=== PATIENT | male | born 1950 | race Caucasian/White ===

== ENCOUNTER 2017-02-25 10:51 | Outpatient (CLI) | payer MEDICARE, BC | END 2017-02-25 10:52 | disposition home or self-care (01) | LOC: SC 10:51 | PROVIDERS: ATTEND Internal Medicine Pulmonary Disease | DX: G47.33 Obstructive sleep apnea (adult) (pediatric) (principal) | CPT/HCPCS: 99203; G0463; 99212 ==

== ENCOUNTER 2017-05-29 09:06 | Outpatient (CLI) | payer MEDICARE, BC ==
[2017-05-29 17:24] LABS: BASOPHILS % (AUTO) 0.6 %; EOSINOPHILS # (AUTO) 0.2 10^3/uL (0.0-0.7); EOSINOPHILS % (AUTO) 4.6 %; HGB - HEMOGLOBIN 13.8 g/dL (14.0-18.0); LYMPHOCYTES # (AUTO) 1.2 10^3/uL (1.5-3.5); LYMPHOCYTES % (AUTO) 28.1 %; MEAN CORPUSCULAR HEMOGLOBIN 31.3 pg (27.0-31.0); MEAN CORPUSCULAR HGB CONC 33.1 g/dL (32.0-36.0); MEAN CORPUSCULAR VOLUME 94.6 fL (80.0-94.0); MEAN PLATELET VOLUME 8.5 fL (7.4-11.4); MONOCYTES # (AUTO) 0.3 10^3/uL (0.0-1.0); MONOCYTES % (AUTO) 7.6 %; NEUTROPHILS # (AUTO) 2.6 10^3/uL (1.5-6.6); NEUTROPHILS % (AUTO) 59.1 %; PLT - PLATELET COUNT 215 10^3/uL (130-450); RED CELL DISTRIBUTION WIDTH 12.9 % (12.0-15.0); WHITE BLOOD COUNT 4.3 x10^3/uL (4.8-10.8)
[2017-05-29 17:43] LABS: ALBUMIN 4.2 g/dL (3.2-5.5); ALBUMIN/GLOBULIN RATIO 1.7 (1.0-2.2); BILIRUBIN,TOTAL 0.4 mg/dL (0.2-1.0); CALCIUM 9.1 mg/dL (8.5-10.3); CREATININE 1.1 mg/dL (0.6-1.2); TOTAL PROTEIN 6.7 g/dL (6.7-8.2)
== END 2017-05-29 09:07 | disposition home or self-care (01) ==
LOC: LAB.F 09:06
PROVIDERS: ATTEND Physician Assistant Medical
DX: Z00.00 Encounter for general adult medical examination without abnormal findings (principal); G47.33 Obstructive sleep apnea (adult) (pediatric); M25.512 Pain in left shoulder
CPT/HCPCS: 36415; 80053; 80061; 83721; 85025

== ENCOUNTER 2017-06-23 09:36 | Outpatient (CLI) | payer MEDICARE, BC ==
[2017-06-23 17:55] LABS: BASOPHILS % (AUTO) 0.4 %; EOSINOPHILS # (AUTO) 0.2 10^3/uL (0.0-0.7); HGB - HEMOGLOBIN 13.6 g/dL (14.0-18.0); LYMPHOCYTES # (AUTO) 1.6 10^3/uL (1.5-3.5); LYMPHOCYTES % (AUTO) 36.6 %; MEAN CORPUSCULAR HEMOGLOBIN 31.3 pg (27.0-31.0); MEAN CORPUSCULAR HGB CONC 33.1 g/dL (32.0-36.0); MEAN CORPUSCULAR VOLUME 94.7 fL (80.0-94.0); MEAN PLATELET VOLUME 8.6 fL (7.4-11.4); MONOCYTES # (AUTO) 0.3 10^3/uL (0.0-1.0); MONOCYTES % (AUTO) 7.3 %; NEUTROPHILS # (AUTO) 2.2 10^3/uL (1.5-6.6); NEUTROPHILS % (AUTO) 50.7 %; PLT - PLATELET COUNT 220 10^3/uL (130-450); RED BLOOD COUNT 4.35 10^6/uL (4.70-6.10); RED CELL DISTRIBUTION WIDTH 13.4 % (12.0-15.0); WHITE BLOOD COUNT 4.3 x10^3/uL (4.8-10.8)
[2017-06-23 18:07] LABS: PSA SCREEN (Z12.5) 3.334 ng/mL (0.000-2.000)
[2017-06-23 18:36] LABS: % IRON SATURATION 25 % (20-50); CHOL/HDL RATIO 3.9 (<5.0); CHOLESTEROL 193 mg/dL; HDL CHOLESTEROL 50 mg/dL; IRON 82 ug/dL (45-182); LDL CHOLESTEROL,CALCULATED 102 mg/dL; TOTAL IRON BINDING CAPACITY 328 ug/dL (250-450); TRANSFERRIN 234 mg/dL (180-329); VLDL CHOLESTEROL 41 mg/dL
[2017-06-23 19:18] LABS: HB2 TOTAL 14.8 g/dL; HEMOGLOBIN A1C 0.52 g/dL; HEMOGLOBIN A1C % 5.4 % (4.6-6.2)
[2017-06-24 18:57] LABS: PSA FREE 0.539 ng/mL (0.16-2.81)
[2017-06-24 19:35] LABS: PSA TOTAL 3.334 ng/mL (0.000-2.000)
== END 2017-06-23 09:37 | disposition home or self-care (01) ==
LOC: LAB.F 09:36
PROVIDERS: ATTEND Physician Assistant Medical
DX: R73.01 Impaired fasting glucose (principal); D64.9 Anemia, unspecified; Z12.5 Encounter for screening for malignant neoplasm of prostate; E55.9 Vitamin D deficiency, unspecified
CPT/HCPCS: 36415; 80061; 82306; 82728; 83036; 83540; 84466; 85025; G0103; 83721; 84153; 84154

== ENCOUNTER 2017-10-24 09:50 | Outpatient (CLI) | payer MEDICARE, BC ==
--- NOTE | 2017-10-24 16:46 | DEXA Report ---
Procedure Date: 10/24/2017 Accession Number: [id number] / [id number] Procedure: DEX - Dexa Spine and/or Hip CPT Code: FULL RESULT: EXAM: Dexa Spine and/or Hip DATE: 10/24/2017 10:30 AM CLINICAL HISTORY: OSTEOPOROSIS TECHNIQUE: Dual energy x-ray absorptiometry (DXA) was performed on a [employer] System. Regions measured are the AP Spine, femoral neck, and if needed forearm. COMPARISON: None. In accordance with the International Society for Clinical Densitometry (ISCD) guidelines, data from previous exams may be reanalyzed using current recommendations and techniques. This is done to allow a more accurate basis for comparison with the current study. FINDINGS: The data for the lumbar spine is as follows: BMD (g/cm/cm) T-SCORE Z-SCORE REGION L1 1.090 -0.6 0.0 L2 1.393 1.3 1.9 L3 1.422 1.5 2.1 L4 1.714 3.9 4.6 TOTAL 1.410 1.6 2.2 NOTE: All evaluable vertebrae are used for classification The data for the hip is as follows: BMD (g/cm/cm) T-SCORE Z-SCORE REGION Neck 0.844 -1.7 -0.5 TOTAL 0.940 -1.1 -0.4 NOTE: The femoral neck or total proximal femur, whichever is lowest, is used for classification. IMPRESSION: THE WHO CLASSIFICATION BASED ON THE INTERNATIONAL REFERENCE STANDARD IS OSTEOPENIA. THE FRACTURE RISK IS INCREASED. RECOMMENDATION: Patients with diagnosis of osteoporosis or osteopenia should have regular bone mineral density assessment. For those eligible for Medicare, routine testing is allowed once every 2 years. Testing frequency can be increased for patients who have rapidly progressing disease or for those who are receiving medical therapy to restore bone mass. COMMENT: World Health Organization (WHO) definitions for osteoporosis and osteopenia: NORMAL BMD: T-score at -1.0 or higher, fracture risk is low OSTEOPENIA BMD: T-score between -1.0 and -2.5, fracture risk is increased. OSTEOPOROSIS BMD: T-score at -2.5 or lower, fracture risk is high. National Osteoporosis Foundation recommends: 1. Obtain adequate dietary calcium (at least 1200 mg per day) and vitamin D (400-800 international units per day). 2. Participate, as appropriate, in regular weightbearing and muscle-strengthening exercise. 3. Avoid tobacco use and reduce alcohol and caffeine intake. 4. For more detailed information see the website at www.NOF.org.
== END 2017-10-24 09:51 | disposition home or self-care (01) ==
LOC: DI 09:50
PROVIDERS: ATTEND Internal Medicine
DX: M81.0 Age-related osteoporosis without current pathological fracture (principal); M85.89 Other specified disorders of bone density and structure, multiple sites; M79.671 Pain in right foot
CPT/HCPCS: 77080

== ENCOUNTER 2017-10-24 10:00 | Outpatient (CLI) | payer MEDICARE, BC ==
--- NOTE | 2017-10-24 16:46 | XRAY Report ---
Procedure Date: 10/24/2017 Accession Number: [id number] / [id number] Procedure: XR - Foot 3 View RT CPT Code: FULL RESULT: EXAM: Foot 3 View RT DATE: 10/24/2017 10:15 AM CLINICAL HISTORY: PAINFUL RIGHT FOOT COMPARISON: None. TECHNIQUE: 3 views. FINDINGS: Bones: Normal. No fractures or bone lesions. Joints: Normal. No subluxations. Soft Tissues: Normal. No soft tissue swelling. IMPRESSION: Normal foot radiography. RADIA
== END 2017-10-24 10:01 | disposition home or self-care (01) ==
LOC: DI 10:00
PROVIDERS: ATTEND Podiatrist
DX: M79.671 Pain in right foot (principal)

== ENCOUNTER 2018-02-06 13:59 | Outpatient (CLI) | payer MEDICARE, BC ==
[2018-02-06 18:07] LABS: BASOPHILS % (AUTO) 0.3 %; EOSINOPHILS # (AUTO) 0.2 10^3/uL (0.0-0.7); EOSINOPHILS % (AUTO) 3.4 %; HGB - HEMOGLOBIN 14.3 g/dL (14.0-18.0); LYMPHOCYTES # (AUTO) 1.8 10^3/uL (1.5-3.5); LYMPHOCYTES % (AUTO) 33.5 %; MEAN CORPUSCULAR HEMOGLOBIN 32.8 pg (27.0-31.0); MEAN CORPUSCULAR VOLUME 96.5 fL (80.0-94.0); MEAN PLATELET VOLUME 8.7 fL (7.4-11.4); MONOCYTES # (AUTO) 0.4 10^3/uL (0.0-1.0); MONOCYTES % (AUTO) 7.6 %; NEUTROPHILS % (AUTO) 55.2 %; PLT - PLATELET COUNT 241 10^3/uL (130-450); RED BLOOD COUNT 4.35 10^6/uL (4.70-6.10); RED CELL DISTRIBUTION WIDTH 12.6 % (12.0-15.0); WHITE BLOOD COUNT 5.5 x10^3/uL (4.8-10.8)
== END 2018-02-06 14:00 | disposition home or self-care (01) ==
LOC: LAB.F 13:59
PROVIDERS: ATTEND Physician Assistant Medical
DX: D64.9 Anemia, unspecified (principal)
CPT/HCPCS: 36415; 85025

== ENCOUNTER 2018-03-23 15:07 | Outpatient (CLI) | payer MEDICARE, BC | END 2018-03-23 15:08 | disposition home or self-care (01) | LOC: SC 15:07 | PROVIDERS: ATTEND Nurse Practitioner Family | DX: G47.33 Obstructive sleep apnea (adult) (pediatric) (principal) | CPT/HCPCS: 99214; G0463; 99212 ==

== ENCOUNTER 2018-08-24 11:17 | Outpatient (CLI) | payer MEDICARE, BC ==
[2018-08-24 18:29] LABS: BASOPHILS % (AUTO) 0.4 %; EOSINOPHILS # (AUTO) 0.2 10^3/uL (0.0-0.7); EOSINOPHILS % (AUTO) 4.3 %; HGB - HEMOGLOBIN 13.4 g/dL (14.0-18.0); LYMPHOCYTES # (AUTO) 1.3 10^3/uL (1.5-3.5); MEAN CORPUSCULAR HEMOGLOBIN 32.3 pg (27.0-31.0); MEAN CORPUSCULAR HGB CONC 34.1 g/dL (32.0-36.0); MEAN CORPUSCULAR VOLUME 94.9 fL (80.0-94.0); MEAN PLATELET VOLUME 8.6 fL (7.4-11.4); MONOCYTES # (AUTO) 0.4 10^3/uL (0.0-1.0); MONOCYTES % (AUTO) 7.7 %; NEUTROPHILS % (AUTO) 60.6 %; PLT - PLATELET COUNT 208 10^3/uL (130-450); RED BLOOD COUNT 4.14 10^6/uL (4.70-6.10); RED CELL DISTRIBUTION WIDTH 12.9 % (12.0-15.0); WHITE BLOOD COUNT 4.9 x10^3/uL (4.8-10.8)
[2018-08-24 18:43] LABS: ALBUMIN/GLOBULIN RATIO 1.5 (1.0-2.2); ALKALINE PHOSPHATASE 71 IU/L (42-121); ALT ALANINE AMINOTRANSFERASE 19 IU/L (10-60); AST ASPARTATE AMINOTRANSFERASE 21 IU/L (10-42); BILIRUBIN,TOTAL 0.6 mg/dL (0.2-1.0); BUN - BLOOD UREA NITROGEN 21 mg/dL (6-20); CALCIUM 8.9 mg/dL (8.5-10.3); CARBON DIOXIDE - CO2 25 mmol/L (21-32); CHLORIDE 105 mmol/L (101-111); CHOL/HDL RATIO 3.2 (<5.0); CHOLESTEROL 150 mg/dL; CREATININE 1.2 mg/dL (0.6-1.2); GFR - MDRD 60 (>89); GLUCOSE 106 mg/dL (70-100); HDL CHOLESTEROL 47 mg/dL; LDL CHOLESTEROL,CALCULATED 67 mg/dL; LDL/HDL RATIO 1.4 (<3.6); SODIUM 141 mmol/L (135-145); TOTAL PROTEIN 6.6 g/dL (6.7-8.2); VLDL CHOLESTEROL 36 mg/dL
[2018-08-24 19:47] LABS: HB2 TOTAL 14.2 g/dL; HEMOGLOBIN A1C 0.53 g/dL; HEMOGLOBIN A1C % 5.6 % (4.6-6.2)
== END 2018-08-24 11:18 | disposition home or self-care (01) ==
LOC: LAB.F 11:17
PROVIDERS: ATTEND Physician Assistant Medical
DX: I10 Essential (primary) hypertension (principal); E78.5 Hyperlipidemia, unspecified; R73.01 Impaired fasting glucose
CPT/HCPCS: 36415; 80053; 80061; 83036; 83721; 85025

== ENCOUNTER 2018-09-01 08:00 | Outpatient (CLI) | payer MEDICARE, BC | END 2018-09-01 23:59 | disposition home or self-care (01) | LOC: LAB.F 08:00 | PROVIDERS: ATTEND Nurse Practitioner Family | DX: C61 Malignant neoplasm of prostate (principal) | CPT/HCPCS: 36415; 84153 ==

== ENCOUNTER 2019-02-05 11:45 | Outpatient (CLI) | payer MEDICARE, BC | END 2019-02-05 11:46 | disposition home or self-care (01) | LOC: LAB.S 11:45 | PROVIDERS: ATTEND Nurse Practitioner Family | DX: C61 Malignant neoplasm of prostate (principal) | CPT/HCPCS: 36415; 84153 ==

== ENCOUNTER 2019-02-16 10:05 | Outpatient (CLI) | payer MEDICARE, BC ==
[2019-02-16 17:13] LABS: BASOPHILS % (AUTO) 0.5 %; EOSINOPHILS # (AUTO) 0.2 10^3/uL (0.0-0.7); EOSINOPHILS % (AUTO) 4.2 %; HGB - HEMOGLOBIN 13.3 g/dL (14.0-18.0); LYMPHOCYTES # (AUTO) 1.7 10^3/uL (1.5-3.5); LYMPHOCYTES % (AUTO) 42.9 %; MEAN CORPUSCULAR HEMOGLOBIN 32.4 pg (27.0-31.0); MEAN CORPUSCULAR HGB CONC 33.5 g/dL (32.0-36.0); MEAN CORPUSCULAR VOLUME 96.6 fL (80.0-94.0); MEAN PLATELET VOLUME 10.5 fL (7.4-11.4); MONOCYTES # (AUTO) 0.4 10^3/uL (0.0-1.0); MONOCYTES % (AUTO) 9.2 %; NEUTROPHILS # (AUTO) 1.7 10^3/uL (1.5-6.6); PLT - PLATELET COUNT 227 10^3/uL (130-450); RED BLOOD COUNT 4.11 10^6/uL (4.70-6.10); RED CELL DISTRIBUTION WIDTH 12.7 % (12.0-15.0)
[2019-02-16 17:29] LABS: ALBUMIN 4.1 g/dL (3.2-5.5); ALBUMIN/GLOBULIN RATIO 1.5 (1.0-2.2); ALKALINE PHOSPHATASE 53 IU/L (42-121); ALT ALANINE AMINOTRANSFERASE 26 IU/L (10-60); AST ASPARTATE AMINOTRANSFERASE 24 IU/L (10-42); BILIRUBIN,TOTAL 0.6 mg/dL (0.2-1.0); BUN - BLOOD UREA NITROGEN 20 mg/dL (6-20); CALCIUM 8.6 mg/dL (8.5-10.3); CARBON DIOXIDE - CO2 25 mmol/L (21-32); CHLORIDE 105 mmol/L (101-111); CHOL/HDL RATIO 3.4 (<5.0); CHOLESTEROL 169 mg/dL; CREATININE 1.1 mg/dL (0.6-1.2); GFR - MDRD 67 (>89); GLUCOSE 96 mg/dL (70-100); HDL CHOLESTEROL 49 mg/dL; LDL CHOLESTEROL,CALCULATED 82 mg/dL; LDL/HDL RATIO 1.7 (<3.6); SODIUM 139 mmol/L (135-145); TOTAL PROTEIN 6.9 g/dL (6.7-8.2); VLDL CHOLESTEROL 38 mg/dL
[2019-02-16 17:30] LABS: HB2 TOTAL 13.3 g/dL; HEMOGLOBIN A1C 0.47 g/dL; HEMOGLOBIN A1C % 5.4 % (4.6-6.2)
== END 2019-02-16 10:06 | disposition home or self-care (01) ==
LOC: LAB.S 10:05
PROVIDERS: ATTEND Physician Assistant Medical
DX: I10 Essential (primary) hypertension (principal); E78.5 Hyperlipidemia, unspecified; M81.0 Age-related osteoporosis without current pathological fracture; E55.9 Vitamin D deficiency, unspecified; R73.01 Impaired fasting glucose
CPT/HCPCS: 36415; 80053; 80061; 82306; 83036; 83721; 85025

== ENCOUNTER 2019-04-19 10:57 | Outpatient (CLI) | payer MEDICARE, BC ==
--- NOTE | 2019-04-19 12:26 | SLEEP CARE CONSULTATION ---
Information from patient questionnaire entered by Ariana Pierce. I have reviewed and concur with the information entered by Ariana Pierce. This document represents the service I personally performed and the decisions made by me, Jodie Jordan, RN, MSN, AEROSPACE TECHNICIAN. History of Present Illness Previous diagnosis: Severe, Obstructive Sleep Apnea-Hypopnea Syndrome AHI: 35.4 Reason for follow up: annual Equipment type: CPAP (REM star Auto System one series - over 5 years old) Equipment obtained from: [employer] Mask style: Nasal (Dreamwear with chinstrap) Mask brand: Respironics Backup mask available: Yes (old mask ) Last cushion change: yesterday Prior sleep studies: Yes CPAP Compliance Data - Data Reviewed with Patient Average duration of nightly device use: 9H 27M Compliance rate %: 100 (Patient wears CPAP while watching TV in bed before sleep. ) Current pressure setting (cmH2O): 9-20 Humidity settin Heated hose settin Average residual AHI: 1.8 Average large leak: 0s Subjective Patient concerns: reports: dry mouth, nose, throat (a few times a week), other (oral venting noted even with chinstrap 1-2 nights a week ). denies: aerophagia, mask discomfort, air blowing in eyes, mask leak noise, condensation in mask/hose, nasal congestion, epistaxis Observed to snore while using device: No Current pressure setting perceived as: comfortable On therapy, patient: reports: sleeping better (uses a sleep aid other kaminski has difficulty and maintaining sleep for years. Just started Benadry as Trazadone no longer effective. ), awakening more refreshed, being more awake and alert during the day, more rested overall. denies: drowsiness while driving Initial [place] Sleepiness Scale score: 0 Current [place] Sleepiness Scale score: 0 Allergies and Home Medications Known drug allergies: Yes (lisinopril , atenolol) Home medication list reviewed: Yes (see changes made ) Allergy and home medication list: Medication Name (generic/name brand) Strength & Dosage Amlodipine 5mg tab 1 daily Losartan 25mg tab 1 daily Alendronate 70mg tab 1 weekly Calcium Citrate 1500mg tab 1 twice daily Vitamin D3 1000iu tab 1 daily Aspirin 81mg tab 1 daily Lysine 1000mg tab 1 daily B12 Sublingual unknown dose daily diphehydramine 50mg daily HS ( sleep aid) sildenalfil 20mg every other day. Review of Systems Review of systems same as previous: No (Prostectomy June 2018) Physical Exam Blood Pressure: 120/66 Cuff size: long Heart Rate: 66 O2 Saturation: 98 Height: 5 ft 6 in Weight: 169 lb Body Mass Index: 27.2 BMI Classification: Overweight Impression and Plan 1. Obstructive Sleep Apnea-Hypopnea Syndrome, severe, with good treatment compliance and good apnea control. On CPAP therapy, the patient has better sleep quality and is more rested overall. To reduce venting, I will reduce autoCPAP range to [id number]. He is to contact me if the pressure change uncomfortable. Since his CPAP is over 5 years old and of reasonable use, I will update his CPAP to Dreamstation per patient preference. Compliance guidelines discussed. Hopefully the new device will reduce oral dryness with better humidity unit. The reduction in oral venting should alsor reduce oral dryness. Patient's apnea severity and rationale for treatment to reduce apnea, improve sleep quality and reduce cardiovascular and cerebrovascular events was reviewed. I also reviewed the benefit of consistent device use of CPAP for hypertension. 2. Insomnia, chronic, states has needed some form of sleep aid 5 or more years to initiate and maintain sleep. Tried Ambien until ineffective, then progressed to Trazadone which also stopped being effective. Started Benadryl a couple of months ago with some benefit noted. He states that it is hard to shut down the brain sometimes. He also stays in bed about 9.5 hours which could be also contributing to his sleep initiation difficulty. Thus I will have him complete a sleep diary after his new CPAP and new pressure. As his waking in middle of night could be due to oral venting or other cause. If due to too much time in bed, restriction of bedtime will be addressed. He was also advised to discuss the nursing home use of Benadryl with his PCP due to some recent studies showing cognitive decline later in life with chronic use. * * Change CPAP pressure to 9-11 * Update CPAP Dreamstation preference by patient. * Sleep diary. * Notify me if snoring with mask or feeling that the pressure is too much or too little * Attempt to lose weight * Call this office if any problems using CPAP * Return for follow up in 1 month after new CPAP , or sooner if concerns arise Time Spent with Patient (minutes): 35 I spent 100% of this visit face to face with the patient with greater than 50% of this was spent time counseling the patient and coordination of care.
[2019-04-19 12:27] VITALS: BP 120/66
== END 2019-04-19 10:58 | disposition home or self-care (01) ==
LOC: SC 10:57
PROVIDERS: ATTEND Nurse Practitioner Family
DX: G47.33 Obstructive sleep apnea (adult) (pediatric) (principal); E66.3 Overweight; Z68.27 Body mass index [BMI] 27.0-27.9, adult; G47.00 Insomnia, unspecified
CPT/HCPCS: 99214; G0463; 99212

== ENCOUNTER 2019-04-22 13:57 | Outpatient (CLI) | payer MEDICARE, BC | END 2019-04-22 13:58 | disposition home or self-care (01) | LOC: LAB.S 13:57 | PROVIDERS: ATTEND Nurse Practitioner Family | DX: C61 Malignant neoplasm of prostate (principal) | CPT/HCPCS: 36415; 84153 ==

== ENCOUNTER 2019-07-09 08:00 | Outpatient (CLI) | payer MEDICARE, BC | END 2019-07-09 23:59 | disposition home or self-care (01) | LOC: LAB.WCP 08:00 | PROVIDERS: ATTEND Nurse Practitioner Family | DX: C61 Malignant neoplasm of prostate (principal) | CPT/HCPCS: 36415; 84153 ==

== ENCOUNTER 2019-12-30 14:00 | Outpatient (CLI) | payer MEDICARE, BC ==
[2019-12-30 15:17] VITALS: BP 124/70
--- NOTE | 2019-12-30 15:17 | SLEEP CARE CONSULTATION ---
Information from patient questionnaire entered by Latrice Daley. I have reviewed and concur with the information entered by Latrice Daley. This document represents the service I personally performed and the decisions made by me, Jodie Jordan, RN, MSN, FIRE TOWER KEEPER. History of Present Illness Service Date and Time: 12/30/2019 1400 Previous diagnosis: Severe, Obstructive Sleep Apnea-Hypopnea Syndrome AHI: 35.4 (in 2014) Reason for follow up: other (10 month) Equipment type: CPAP Equipment obtained from: [employer] (getting supplies as needed) Mask style: Nasal (Dreamwear with chinstrap) Backup mask available: Yes (old mask ) Last cushion change: 2 weeks ago Prior sleep studies: Yes Year and Where: 2014 - [facility] in [facility] additional information: Oral venting less with reduced CPAP pressure but he wonders if still present a couple times a week due to oral dryness. Insomnia continues as described as waking in middle of night and difficulty falling back to sleep. It can take about 2 hours to fall asleep. He stays in bed and tosses and turns for a while and eventually looks at clock. He wakes for unknown reason, to use the bathroom or dreams. The most frequent of wake up is hip and shoulder pain. He is going to a chiropractor and doing exercises to reduce discomfort with benefit noted. He will take NSAID if needed for pain a couple of times a week. He is also following up with PCP. He reports his main difficulty to fall asleep is things on mind and pain. Bedtime schedule is 10pm in bed reading. Asleep by about 11pm and wake time 8-8:30am. He is waking refreshed. He does not drink caffeine after morning . Subjective Patient concerns: reports: mask leak noise (repositions / generally when he sleeps on his side even with CPAP pillow ), dry mouth, nose, throat (a couple times a week - he thinks he raised humidity and reduced hose temp but unknown setting), other (update CPAP as unable to in Feburary due to Covid 19 pandemis ). denies: aerophagia, mask discomfort, air blowing in eyes, condensation in mask/hose, nasal congestion (wakes with up post nasal drainage most mornings recently - uses Shruthi Pot intermittently ) Observed to snore while using device: No Current pressure setting perceived as: comfortable On therapy, patient: reports: awakening more refreshed, being more awake and alert during the day, more rested overall. denies: drowsiness while driving Initial [place] Sleepiness Scale score: 0 (in 2017) Current [place] Sleepiness Scale score: 0 Allergies and Home Medications Known drug allergies: Yes Home medication list reviewed: Yes (no changes ) Review of Systems Review of systems same as previous: Yes Physical Exam Blood Pressure: 124/70 Cuff size: regular Heart Rate: 71 O2 Saturation: 96 Height: 5 ft 6 in Weight: 173 lb 9.6 oz Body Mass Index: 28.0 BMI Classification: Overweight Impression and Plan 1. Obstructive Sleep Apnea-Hypopnea Syndrome, severe, with unknown treatment compliance and unknown apnea control. On CPAP therapy, the patient has better sleep quality and is more rested overall. The patients CPAP is over 5 years old and of reasonable use. He was unable to update his CPAP as planned due to Covid 19 pandemic and would like replace now before any malfunction. However, I first need a recent compliance report. Patient's card data stopped in March. Thus I will have patient bring in CPAP and compliance to ensure recent compliance obtained. He is not waking to oral venting but wonders if it is cause of his oral dryness but he also wears a chinstrap. Oral dryness can be reduced by adjusting humidity setting higher or heated hose lower or by adjusting both settings. Patient aware how to adjust. The new CPAPs also have a better humidity system which could assist control of patients dryness symptoms. A DWO prescription will be made. Compliance guidelines for new device and follow up d iscussed. Nasal congestion can also be reduced with increasing the CPAP humidity. The heated hose can be adjusted higher if condensation with higher humidity setting. He is also advised to use his Shruthi Pot daily until symptoms reduced. In addition, a steamy shower before bed will often assist nasal drainage. Printed instructions given on how to change humidity and heated hose settings with rationale explaining why to change. Patient's apnea severity and rationale for treatment to reduce apnea, improve sleep quality and reduce cardiovscular and cerebrovascular events was reviewed. I also reviewed the benefit of consistent device use of CPAP for hypertension. 2. Insomnia, with difficulty to maintain sleep mainly due to pain and then things on mind making it hard to go back to sleep. First the patient is to consider restrict time in bed to 7-8 hours instead of 9-9.5 hours with rationale discussed. H In addition, it is important to have a relaxing ritual about 30-60 minutes before bedtime to allow the mind/body transition from an active day to sleep. Electronics should be avoided 1-2 hours before bedtime as the bright light can reduce the endogenous melatonin and the activity of the computer, tablet, cell phone etc can be alerting. A warm bath or shower is another way to assist transition to sleep. In addition, it is important to have a sleep environment conducive to sleep such as a comfortable bed, comfortable temperature and quiet as noted in AASM sleep pamphlet given. The alarm clock should be set and the face covered to prevent clock watching if awakened during the night. Knowing the time can cause anxiety and increase alertness and thinking about sleep time and preparation for the next day. Instead if awakened after sleep, the patient is to position for comfort or use bathroom and return to sleep. If unable to go to sleep within a short period of time, he is advised to leave the bedroom and engage in a quiet activity until sleepy enough to return to bed. If unable to sleep due to things on the mind, it is recommended to write out the concerns or list to do as a release then return to a quiet activity until sleepy enough to return to bed. This is to be repeated as often as necessary to associate the bed with sleep and not frustration to get to sleep. Since his bedtime ritual is reading in bed, I advised him instead to read outside of bedroom except for a short time to better associate the bed with sleep. AASM How to Sleep Better pamphlet given and reviewed. A sleep diary will be completed for the next 2 weeks to assist implementation of recommendations and for further evaluation of sleep concerns. I will also have him complete a sleep diary to implement changes. In addition, he is follow up with PCP about his continued muscle skeletal pain that has been ongoing for years. He can also discuss with chiropractor where he is getting some relief as to benefit of adding massage therapy to his program of pain relief. * Obtain recent Compliance report * Update CPAP after recent compliance report * Continue auto CPAP pressure at 9-11 cmH2O * Implement methods to reduce oral dryness, nasal congestion and insomnia * sleep diaries * Notify me if snoring with mask or feeling that the pressure is too much or too little * Attempt to lose weight * Call this office if any problems using CPAP * Return for follow up in 1 month , or sooner if concerns arise Visit Type: In Office Time Spent with Patient (minutes): 45 Provider Statement: I spent 100% of the Face to Face Visit with the patient with greater than 50% spent counseling the patient and coordination of care.
== END 2019-12-30 14:01 | disposition home or self-care (01) ==
LOC: SC 14:00
PROVIDERS: ATTEND Nurse Practitioner Family
DX: G47.33 Obstructive sleep apnea (adult) (pediatric) (principal); E66.3 Overweight; Z68.28 Body mass index [BMI] 28.0-28.9, adult
CPT/HCPCS: 99215; G0463; 99212

== ENCOUNTER 2020-01-27 09:18 | Outpatient (CLI) | payer MEDICARE, BC ==
[2020-01-27 15:10] LABS: BASOPHILS % (AUTO) 0.2 %; EOSINOPHILS # (AUTO) 0.2 10^3/uL (0.0-0.7); EOSINOPHILS % (AUTO) 4.1 %; HGB - HEMOGLOBIN 13.2 g/dL (14.0-18.0); LYMPHOCYTES # (AUTO) 1.5 10^3/uL (1.5-3.5); LYMPHOCYTES % (AUTO) 36.5 %; MEAN CORPUSCULAR HEMOGLOBIN 32.3 pg (27.0-31.0); MEAN CORPUSCULAR HGB CONC 33.5 g/dL (32.0-36.0); MEAN CORPUSCULAR VOLUME 96.3 fL (80.0-94.0); MEAN PLATELET VOLUME 10.5 fL (7.4-11.4); MONOCYTES # (AUTO) 0.4 10^3/uL (0.0-1.0); MONOCYTES % (AUTO) 8.8 %; NEUTROPHILS # (AUTO) 2.1 10^3/uL (1.5-6.6); NEUTROPHILS % (AUTO) 50.2 %; PLT - PLATELET COUNT 214 10^3/uL (130-450); RED BLOOD COUNT 4.09 10^6/uL (4.70-6.10); RED CELL DISTRIBUTION WIDTH 12.5 % (12.0-15.0); WHITE BLOOD COUNT 4.1 x10^3/uL (4.8-10.8)
[2020-01-27 15:33] LABS: ALBUMIN 4.1 g/dL (3.2-5.5); ALBUMIN/GLOBULIN RATIO 1.5 (1.0-2.2); ALKALINE PHOSPHATASE 57 IU/L (42-121); ALT ALANINE AMINOTRANSFERASE 23 IU/L (10-60); AST ASPARTATE AMINOTRANSFERASE 20 IU/L (10-42); BILIRUBIN,TOTAL 0.7 mg/dL (0.2-1.0); BUN - BLOOD UREA NITROGEN 24 mg/dL (6-20); CALCIUM 9.2 mg/dL (8.5-10.3); CARBON DIOXIDE - CO2 25 mmol/L (21-32); CHLORIDE 105 mmol/L (101-111); CHOL/HDL RATIO 3.9 (<5.0); CHOLESTEROL 184 mg/dL; CREATININE 1.1 mg/dL (0.6-1.2); GLUCOSE 101 mg/dL (70-100); HDL CHOLESTEROL 47 mg/dL; LDL CHOLESTEROL,CALCULATED 96 mg/dL; SODIUM 138 mmol/L (135-145); TOTAL PROTEIN 6.8 g/dL (6.7-8.2); VLDL CHOLESTEROL 41 mg/dL
== END 2020-01-27 09:19 | disposition home or self-care (01) ==
LOC: LAB.S 09:18
PROVIDERS: ATTEND Nurse Practitioner Family
DX: C61 Malignant neoplasm of prostate (principal); D64.9 Anemia, unspecified; E78.5 Hyperlipidemia, unspecified; I10 Essential (primary) hypertension; G47.33 Obstructive sleep apnea (adult) (pediatric)
CPT/HCPCS: 36415; 80053; 80061; 83721; 84153; 84443; 85025; 86704

== ENCOUNTER 2020-04-06 15:02 | Outpatient (CLI) | payer MEDICARE, BC ==
--- NOTE | 2020-04-06 14:10 | SLEEP CARE CONSULTATION ---
Information from patient questionnaire entered by Latrice Daley. I have reviewed and concur with the information entered by Latrice Daley. This document represents the service I personally performed and the decisions made by me, Jodie Jordan, RN, MSN, INFORMATICS COORDINATOR. History of Present Illness Service Date and Time: 04/06/2020 1330 Previous diagnosis: Severe, Obstructive Sleep Apnea-Hypopnea Syndrome AHI: 35.4 (in 2013) Reason for follow up: first compliance after device update Equipment type: CPAP Equipment obtained from: [employer] (getting supplies as needed) Mask style: Nasal Mask brand: Respironics (Dreamwear with chinstrap) Backup mask available: Yes (old mask ) Last cushion change: 4 days ago Prior sleep studies: Yes Year and Where: 2013 - [facility] in [place] CPAP Compliance Data - Data Reviewed with Patient Average duration of nightly device use: 9 hr 13 min Compliance rate %: 100 Current pressure setting (cmH2O): 9-11 Humidity settin Heated hose settin Average residual AHI: 1.4 Average large leak: 0 sec Subjective Missed days of use due to: reports: other (used old machine when humdifier broke until replacement ) Patient concerns: reports: dry mouth, nose, throat (dry mouth with oral venting), other (oral venting since pressure increased from 9-10 to [id number] / filter dirtier than past Machine but only changing monthly as advised instead of every two weeks as before. . ). denies: aerophagia, mask discomfort, air blowing in eyes, mask leak noise, condensation in mask/hose, nasal congestion, epistaxis Observed to snore while using device: No Current pressure setting perceived as: comfortable (except for the oral venting) On therapy, patient: reports: sleeping better (changed his pillow which has improved his sleep - developed by chiropractor), awakening more refreshed, being more awake and alert during the day, more rested overall Initial [place] Sleepiness Scale score: 0 (in 2017) Current [place] Sleepiness Scale score: 0 Allergies and Home Medications Known drug allergies: No Home medication list reviewed: Yes (no allergies) Review of Systems Review of systems same as previous: Yes Physical Exam Height: 5 ft 6 in (home weight) Weight: 165 lb Body Mass Index: 26.6 BMI Classification: Overweight Impression and Plan 1. Obstructive Sleep Apnea-Hypopnea Syndrome, severe, with good treatment compliance and excellent apnea control. On CPAP therapy, the patient has better sleep quality and is more rested overall. Patient is very pleased with benefit of his CPAP treatment. For his filter concerns, I advised him to change them every 2 weeks rather than monthly as he did with his last device with rationale discussed. He is to contact [facility] for more filters. I will also order. For his oral venting, I will reduce his CPAP pressure to [id number]. He is to contact this office if this does not resolve. He is also to update his chinstrap when due. Patient's apnea severity and rationale for treatment to reduce apnea, imp rove sleep quality and reduce cardiovascular and cerebrovascular events was reviewed. I also reviewed the benefit of consistent device use of CPAP for hypertension. Patient is slightly overweight, I discussed how weight affects apnea and CPAP pressure. If he should gain or lose weight, he may need his CPAP pressure adjusted. Symptoms to report for pressure adjustment discussed. * * Change auto CPAP pressure to 9-10 cmH2O * Notify me if snoring with mask or feeling that the pressure is too much or too little * change filters every 2 weeks * update chinstrap * Attempt to lose some weight * Call this office if any problems using CPAP * Return for follow up in 1 year , or sooner if concerns arise Visit Type: Telehealth Phone ([facility]) Patient Location: Home Location of Provider: Home Patient agrees and consents to this telehealth visit type: Yes Patient agrees to have their insurance billed: Yes Time Spent with Patient (minutes): 20 minutes with patient/ 12 minutes documentation and prescription Provider Statement: I spent 100% of the Telehealth Phone Call with the patient with greater than 50% spent counseling the patient and coordination of care.
== END 2020-04-06 15:03 | disposition home or self-care (01) ==
LOC: SC 15:02
PROVIDERS: ATTEND Nurse Practitioner Family
DX: G47.33 Obstructive sleep apnea (adult) (pediatric) (principal); E66.3 Overweight; Z68.26 Body mass index [BMI] 26.0-26.9, adult

== ENCOUNTER 2020-07-24 11:49 | Outpatient (CLI) | payer MEDICARE, BC | END 2020-07-24 11:50 | disposition home or self-care (01) | LOC: LAB.S 11:49 | PROVIDERS: ATTEND Nurse Practitioner Adult Health | DX: C61 Malignant neoplasm of prostate (principal) | CPT/HCPCS: 36415; 84153 ==

== ENCOUNTER 2020-10-16 08:00 | Outpatient (CLI) | payer MEDICARE, BC ==
[2020-10-16 20:18] LABS: BF CLARITY HAZY; BF SOURCE SYNOVIAL
[2020-10-16 22:11] LABS: LYMPHOCYTES %,BODY FLUID 22 %; MACROPHAGES %,BODY FLUID 35 %; MONOCYTES %,BODY FLUID 42 %; NEUTROPHILS %, BF 1 %
[2020-10-16 22:12] LABS: BF COLOR BLOODY
== END 2020-10-16 23:59 | disposition home or self-care (01) ==
LOC: LAB.S 08:00
PROVIDERS: ATTEND Physician Assistant Medical
DX: M70.21 Olecranon bursitis, right elbow (principal)
CPT/HCPCS: 87070; 87205; 89051

== ENCOUNTER 2021-01-23 10:18 | Outpatient (CLI) | payer MEDICARE, BC ==
[2021-01-23 14:18] LABS: BASOPHILS % (AUTO) 0.5 %; EOSINOPHILS # (AUTO) 0.1 10^3/uL (0.0-0.7); EOSINOPHILS % (AUTO) 2.8 %; HCT - HEMATOCRIT 39.5 % (42.0-52.0); HGB - HEMOGLOBIN 13.3 g/dL (14.0-18.0); LYMPHOCYTES # (AUTO) 1.4 10^3/uL (1.5-3.5); LYMPHOCYTES % (AUTO) 36.9 %; MEAN CORPUSCULAR HEMOGLOBIN 32.8 pg (27.0-31.0); MEAN CORPUSCULAR HGB CONC 33.7 g/dL (32.0-36.0); MEAN CORPUSCULAR VOLUME 97.3 fL (80.0-94.0); MEAN PLATELET VOLUME 10.8 fL (7.4-11.4); MONOCYTES # (AUTO) 0.3 10^3/uL (0.0-1.0); MONOCYTES % (AUTO) 8.5 %; PLT - PLATELET COUNT 236 10^3/uL (130-450); RED BLOOD COUNT 4.06 10^6/uL (4.70-6.10); RED CELL DISTRIBUTION WIDTH 12.5 % (12.0-15.0); WHITE BLOOD COUNT 3.9 x10^3/uL (4.8-10.8)
[2021-01-23 14:49] LABS: ALBUMIN 4.3 g/dL (3.2-5.5); ALBUMIN/GLOBULIN RATIO 1.7 (1.0-2.2); ALKALINE PHOSPHATASE 57 IU/L (42-121); ALT ALANINE AMINOTRANSFERASE 38 IU/L (10-60); AST ASPARTATE AMINOTRANSFERASE 23 IU/L (10-42); BILIRUBIN,TOTAL 0.9 mg/dL (0.2-1.0); BUN - BLOOD UREA NITROGEN 26 mg/dL (6-20); CALCIUM 9.3 mg/dL (8.5-10.3); CARBON DIOXIDE - CO2 28 mmol/L (21-32); CHLORIDE 103 mmol/L (101-111); CHOL/HDL RATIO 4.4 (<5.0); CHOLESTEROL 184 mg/dL; CREATININE 1.3 mg/dL (0.6-1.2); GFR - MDRD 55 (>89); GLUCOSE 97 mg/dL (70-100); HDL CHOLESTEROL 42 mg/dL; LDL CHOLESTEROL,CALCULATED 101 mg/dL; LDL/HDL RATIO 2.4 (<3.6); POTASSIUM 4.2 mmol/L (3.5-5.0); SODIUM 138 mmol/L (135-145); TOTAL PROTEIN 6.8 g/dL (6.7-8.2); TRIGLYCERIDES 207 mg/dL; VLDL CHOLESTEROL 41 mg/dL
[2021-01-23 14:59] LABS: THYROID STIMULATING HORMONE 3.86 uIU/mL (0.34-5.60)
== END 2021-01-23 10:19 | disposition home or self-care (01) ==
LOC: LAB.S 10:18
PROVIDERS: ATTEND Registered Nurse
DX: I10 Essential (primary) hypertension (principal); G47.33 Obstructive sleep apnea (adult) (pediatric); R73.01 Impaired fasting glucose; E78.5 Hyperlipidemia, unspecified; Z85.46 Personal history of malignant neoplasm of prostate
CPT/HCPCS: 36415; 80053; 80061; 83721; 84153; 84443; 85025

== ENCOUNTER 2021-03-08 08:00 | Outpatient (CLI) | payer MEDICARE, BC ==
[2021-03-08 18:11] LABS: FECAL OCCULT BLOOD (FIT) NEGATIVE (NEGATIVE)
== END 2021-03-08 23:59 | disposition home or self-care (01) ==
LOC: LAB.S 08:00
PROVIDERS: ATTEND Registered Nurse
DX: Z12.11 Encounter for screening for malignant neoplasm of colon (principal)
CPT/HCPCS: 82274

== ENCOUNTER 2021-03-09 12:26 | Outpatient (CLI) | payer MEDICARE, BC ==
[2021-03-09 15:13] LABS: BASOPHILS % (AUTO) 0.2 %; EOSINOPHILS # (AUTO) 0.1 10^3/uL (0.0-0.7); EOSINOPHILS % (AUTO) 1.5 %; HCT - HEMATOCRIT 39.3 % (42.0-52.0); HGB - HEMOGLOBIN 13.5 g/dL (14.0-18.0); LYMPHOCYTES # (AUTO) 1.2 10^3/uL (1.5-3.5); MEAN CORPUSCULAR HEMOGLOBIN 32.9 pg (27.0-31.0); MEAN CORPUSCULAR HGB CONC 34.4 g/dL (32.0-36.0); MEAN CORPUSCULAR VOLUME 95.9 fL (80.0-94.0); MONOCYTES # (AUTO) 0.4 10^3/uL (0.0-1.0); MONOCYTES % (AUTO) 8.3 %; NEUTROPHILS # (AUTO) 2.9 10^3/uL (1.5-6.6); PLT - PLATELET COUNT 240 10^3/uL (130-450); RED CELL DISTRIBUTION WIDTH 12.4 % (12.0-15.0); WHITE BLOOD COUNT 4.6 x10^3/uL (4.8-10.8)
== END 2021-03-09 12:27 | disposition home or self-care (01) ==
LOC: LAB.S 12:26
PROVIDERS: ATTEND Registered Nurse
DX: D64.9 Anemia, unspecified (principal)
CPT/HCPCS: 36415; 85025

== ENCOUNTER 2021-04-13 12:42 | Outpatient (CLI) | payer MEDICARE, BC ==
[2021-04-13 13:31] VITALS: BP 135/95
--- NOTE | 2021-04-13 13:31 | SLEEP CARE CONSULTATION ---
Information from patient questionnaire entered by Maureen Valente MA. I have reviewed and concur with the information entered by Maureen Valente MA. This document represents the service I personally performed and the decisions made by , Luann Sweet ARNP. History of Present Illness Service Date and Time: 04/13/2021 1242 Previous diagnosis: Severe, Obstructive Sleep Apnea-Hypopnea Syndrome AHI: 35.4 (in 2013) Reason for follow up: annual (LAST SEEN 03/2020) Equipment type: CPAP Equipment obtained from: [employer] (getting supplies as needed) Mask style: Nasal Backup mask available: Yes (old mask) Last cushion change: 10 days Prior sleep studies: Yes Year and Where: 2013 - [facility] in [place] HPI additional information: MIGUEL ARMSTRONG was diagnosed to have severe, AHI 35.4, obstructive sleep apnea- hypopnea syndrome and returned today for CPAP therapy annual follow-up. Sleep Study - Results Prior sleep studies: Yes Year and Where: 2013 - [facility] in [place] CPAP Compliance Data - Data Reviewed with Patient Average duration of nightly device use: 9 HOURS 15 MINUTES Compliance rate %: 98.3 Current pressure setting (cmH2O): 8.5-10 Humidity settin Heated hose settin Average residual AHI: 1.2 Average large leak: 0 Subjective Missed days of use due to: reports: other (power outages) Patient concerns: reports: dry mouth, nose, throat (improving with xylomelts). denies: aerophagia, mask discomfort, air blowing in eyes, mask leak noise, condensation in mask/hose, nasal congestion, epistaxis, other Observed to snore while using device: No Current pressure setting perceived as: comfortable On therapy, patient: reports: sleeping better, awakening more refreshed, being more awake and alert during the day, more rested overall. denies: drowsiness while driving Initial [place] Sleepiness Scale score: 0 (in 2016) Current [place] Sleepiness Scale score: 1 (2021) Allergies and Home Medications Known drug allergies: Yes Drug allergies reviewed: Yes Home medication list reviewed: Yes (Diclofenac 75 mg 1x day for arthritis) Review of Systems Review of systems same as previous: Yes (no changes) Physical Exam Vital signs obtained and entered by: L. BONNY, PIT CRANE OPERATOR AAMA Blood Pressure: 135/95 (LEFT, PULES 70, RESP 16,) Heart Rate: 67 O2 Saturation: 99 (n95 MASK) Height: 5 ft 6 in Weight: 162 lb (WITH CLOTHES) Weight change since last visit: 5 lb loss Body Mass Index: 26.1 BMI Classification: Overweight Impression and Plan 1. Obstructive Sleep Apnea-Hypopnea Syndrome, severe, with good treatment compliance and good apnea control. On CPAP therapy, the patient has better sleep quality and is more rested overall. Patient received a Dreamstation 2 from [employer] to replace his CPAP on recall and it is working well. He does get some dry mouth with CPAP use but started using xylomelts nightly with significant improvement of his dry mouth. He has his humidity at 5. He states he has been waking up in night and having times when he is unable to go back to sleep. He states he has trouble shutting his mind off and he will lay there for about 3 hours sometimes. I advised him to get out of bed if unable to fall asleep in 15- 20 minutes and go somewhere elst to write out his thoughts and/or read quietly. He should avoid stimulating activities. I also advised him to try deep breathing with progressive muscle relaxation to quiet the mind and help him relax and fall asleep. He voiced understanding and agreement with plan. Patient's apnea severity and rationale for treatment to reduce apnea, improve sleep quality and reduce cardiovascular and cerebrovascular events was reviewed. I also reviewed the benefit of consistent device use of CPAP for hypertension. Patient has gained weight since he retired but states he has recently lost some weight too. He just added a new dog to his home and is getting more activity with the new pet. Patient was encouraged to lose weight for their overall health and to reduce apneas. * Continue auto CPAP pressure at 8.5-10 cmH2O * Notify me if snoring with mask or feeling that the pressure is too much or too little * Attempt to lose weight * Call this office if any problems using CPAP * Return for follow up in 1 year, or sooner if concerns arise Counseling Topics: Spare mask, Weight loss health impact Visit Type: In Office Time Spent with Patient (minutes): 22 Provider Statement: I spent 100% of the Face to Face Visit with the patient with greater than 50% spent counseling the patient and coordination of care.
== END 2021-04-13 12:43 | disposition home or self-care (01) ==
LOC: SC 12:42
PROVIDERS: ATTEND Nurse Practitioner Family
DX: G47.33 Obstructive sleep apnea (adult) (pediatric) (principal)
CPT/HCPCS: 99213; G0463; 99212

== ENCOUNTER 2021-06-07 12:42 | Outpatient (CLI) | payer MEDICARE, BC ==
[2021-06-07 14:32] LABS: BASOPHILS % (AUTO) 0.4 %; EOSINOPHILS # (AUTO) 0.1 10^3/uL (0.0-0.7); EOSINOPHILS % (AUTO) 2.4 %; HCT - HEMATOCRIT 41.9 % (42.0-52.0); HGB - HEMOGLOBIN 14.4 g/dL (14.0-18.0); LYMPHOCYTES # (AUTO) 1.6 10^3/uL (1.5-3.5); LYMPHOCYTES % (AUTO) 35.7 %; MEAN CORPUSCULAR HEMOGLOBIN 32.3 pg (27.0-31.0); MEAN CORPUSCULAR HGB CONC 34.4 g/dL (32.0-36.0); MEAN CORPUSCULAR VOLUME 93.9 fL (80.0-94.0); MEAN PLATELET VOLUME 10.1 fL (7.4-11.4); MONOCYTES # (AUTO) 0.4 10^3/uL (0.0-1.0); NEUTROPHILS # (AUTO) 2.4 10^3/uL (1.5-6.6); NEUTROPHILS % (AUTO) 52.3 %; PLT - PLATELET COUNT 220 10^3/uL (130-450); RED BLOOD COUNT 4.46 10^6/uL (4.70-6.10); WHITE BLOOD COUNT 4.6 x10^3/uL (4.8-10.8)
== END 2021-06-07 12:43 | disposition home or self-care (01) ==
LOC: LAB.S 12:42
PROVIDERS: ATTEND Registered Nurse
DX: D64.9 Anemia, unspecified (principal)
CPT/HCPCS: 36415; 85025

== ENCOUNTER 2021-07-30 13:54 | Outpatient (CLI) | payer MEDICARE, BC | END 2021-07-30 13:55 | disposition home or self-care (01) | LOC: LAB.S 13:54 | PROVIDERS: ATTEND Nurse Practitioner Family | DX: Z85.46 Personal history of malignant neoplasm of prostate (principal) | CPT/HCPCS: 36415; 84153 ==

== ENCOUNTER 2022-01-25 10:45 | Outpatient (CLI) | payer MEDICARE, BC | END 2022-01-25 10:46 | disposition home or self-care (01) | LOC: LAB.S 10:45 | DX: Z85.46 Personal history of malignant neoplasm of prostate (principal) | CPT/HCPCS: 36415; 84153 ==

== ENCOUNTER 2022-03-01 09:58 | Outpatient (CLI) | payer MEDICARE, BC ==
--- NOTE | 2022-03-01 10:52 | XRAY Report ---
PROCEDURE: Ankle 3 View LT INDICATIONS: ANKLE PAIN TECHNIQUE: 3 views of the ankle were acquired. COMPARISON: None FINDINGS: Bones: No fractures or dislocations. Ankle mortise is normally aligned. No suspicious bony lesions . Soft tissues: No tibiotalar joint effusion. Achilles tendon appears normal. IMPRESSION: No evidence for acute osseous abnormality involving the left ankle. Reviewed by: Freddie Cline MD on 03/01/2022 10:51 AM [facility] Approved by: Freddie Cline MD on 03/01/2022 10:51 AM [facility] Station ID: [id number]
[2022-03-01 15:27] LABS: BASOPHILS % (AUTO) 0.4 %; EOSINOPHILS # (AUTO) 0.1 10^3/uL (0.0-0.7); EOSINOPHILS % (AUTO) 2.4 %; HCT - HEMATOCRIT 41.2 % (42.0-52.0); HGB - HEMOGLOBIN 13.6 g/dL (14.0-18.0); LYMPHOCYTES # (AUTO) 1.5 10^3/uL (1.5-3.5); LYMPHOCYTES % (AUTO) 32.4 %; MEAN CORPUSCULAR HEMOGLOBIN 31.7 pg (27.0-31.0); MONOCYTES # (AUTO) 0.4 10^3/uL (0.0-1.0); MONOCYTES % (AUTO) 8.5 %; NEUTROPHILS # (AUTO) 2.6 10^3/uL (1.5-6.6); NEUTROPHILS % (AUTO) 56.3 %; PLT - PLATELET COUNT 240 10^3/uL (130-450); RED BLOOD COUNT 4.29 10^6/uL (4.70-6.10); RED CELL DISTRIBUTION WIDTH 13.2 % (12.0-15.0); WHITE BLOOD COUNT 4.6 x10^3/uL (4.8-10.8)
[2022-03-01 16:04] LABS: ALBUMIN 4.1 g/dL (3.2-5.5); ALBUMIN/GLOBULIN RATIO 1.5 (1.0-2.2); ALKALINE PHOSPHATASE 66 IU/L (42-121); ALT ALANINE AMINOTRANSFERASE 21 IU/L (10-60); AST ASPARTATE AMINOTRANSFERASE 21 IU/L (10-42); BILIRUBIN,TOTAL 0.6 mg/dL (0.2-1.0); BUN - BLOOD UREA NITROGEN 18 mg/dL (6-20); CARBON DIOXIDE - CO2 26 mmol/L (21-32); CHLORIDE 103 mmol/L (101-111); CHOL/HDL RATIO 3.7 (<5.0); CHOLESTEROL 194 mg/dL; GFR - MDRD 74 (>89); GLUCOSE 104 mg/dL (70-100); HDL CHOLESTEROL 52 mg/dL; LDL CHOLESTEROL,CALCULATED 117 mg/dL; LDL/HDL RATIO 2.3 (<3.6); POTASSIUM 4.2 mmol/L (3.5-5.0); SODIUM 137 mmol/L (135-145); TOTAL PROTEIN 6.8 g/dL (6.7-8.2); TRIGLYCERIDES 127 mg/dL; VLDL CHOLESTEROL 25 mg/dL
== END 2022-03-01 09:59 | disposition home or self-care (01) ==
LOC: DI.S 09:58
PROVIDERS: ATTEND Registered Nurse
DX: M25.579 Pain in unspecified ankle and joints of unspecified foot (principal); Z79.899 Other long term (current) drug therapy; E78.5 Hyperlipidemia, unspecified
CPT/HCPCS: 36415; 80053; 80061; 83721; 85025

== ENCOUNTER 2022-04-16 12:54 | Outpatient (CLI) | payer MEDICARE, BC ==
--- NOTE | 2022-04-16 13:12 | SLEEP CARE CONSULTATION ---
Information from patient questionnaire entered by Marielena Rodriguez. I have reviewed and concur with the information entered by Marielena Rodriguez. This document represents the service I personally performed and the decisions made by me, Luann Sweet ARNP. History of Present Illness Service Date and Time: 04/16/2022 1254 Previous diagnosis: Severe, Obstructive Sleep Apnea-Hypopnea Syndrome AHI: 35.4 (in 2013) Reason for follow up: annual (LAST SEEN 04/14) Equipment type: CPAP (Dreamstation 2; s/u103/26/2019) Equipment obtained from: [employer] (getting supplies as needed) Mask style: Nasal Backup mask available: Yes (old mask) Last cushion change: 1.5 weeks Prior sleep studies: Yes Year and Where: 2013 - [facility] in [place] HPI additional information: MIGUEL ARMSTRONG was diagnosed to have severe, AHI 35.4, obstructive sleep apnea- hypopnea syndrome and returned today for CPAP therapy annual follow-up. Sleep Study - Results Prior sleep studies: Yes Year and Where: 2013 - [facility] CPAP Compliance Data - Data Reviewed with Patient Average duration of nightly device use: 9 HRS 5 MIN 51SEC Compliance rate %: 98.9 (10/16/21-04/13/22; 178/180 days used) Current pressure setting (cmH2O): 8.5-10 Average residual AHI: 0.9 Central apnea: 0.2 Obstructive apnea: 0.4 Average large leak: 0 Subjective Missed days of use due to: reports: other (power outages) Patient concerns: denies: aerophagia, mask discomfort, air blowing in eyes, mask leak noise, condensation in mask/hose, nasal congestion, dry mouth, nose, throat (using Xylomelts), epistaxis Observed to snore while using device: No Current pressure setting perceived as: comfortable On therapy, patient: reports: sleeping better, awakening more refreshed, being more awake and alert during the day, more rested overall. denies: drowsiness while driving Initial [place] Sleepiness Scale score: 0 (in 2017) Current [place] Sleepiness Scale score: 0 (04/16/22) Allergies and Home Medications Drug allergies reviewed: Yes (lisinopril) Home medication list reviewed: Yes (no changes) Review of Systems Review of systems same as previous: Yes (no changes) Physical Exam Vital signs obtained and entered by: MARIELENA Frederick MA Blood Pressure: 130/72 (LEFT ARM) Cuff size: regular Heart Rate: 53 O2 Saturation: 98 Height: 5 ft 6 in Weight: 172 lb 9.6 oz Body Mass Index: 27.8 BMI Classification: Overweight Impression and Plan 1. Obstructive Sleep Apnea-Hypopnea Syndrome, severe, with good treatment compliance and good apnea control. On CPAP therapy, the patient has better sleep quality and is more rested overall. Patient has significant improvement of their sleep apnea and are satisfied with current CPAP therapy. Patient denies problems with oral dryness, nasal congestion, epistaxis, skin irritation or aerophagia. Patient's apnea severity and rationale for treatment to reduce apnea, improve sleep quality and reduce cardiovascular and cerebrovascular events was reviewed. I also reviewed the benefit of consistent device use of CPAP for hypertension. 2. Overweight, unspecified. Currently patients BMI is 27.8. Obesity increases the risk of apnea, CPAP pressure requirements and overall health risks especially cardiovascular and diabetes. Thus patient is advised to lose weight. * Continue auto CPAP pressure at 8.5-10 cmH2O * Update supplies * Notify me if snoring with mask or feeling that the pressure is too much or too little * Attempt to lose weight * Call this office if any problems using CPAP * Return for follow up in 1 year, or sooner if concerns arise Counseling Topics: Spare mask, Weight loss health impact Visit Type: In Office Time Spent with Patient (minutes): 14 Provider Statement: I spent 100% of the Face to Face Visit with the patient with greater than 50% spent counseling the patient and coordination of care.
[2022-04-16 13:13] VITALS: BP 130/72
== END 2022-04-16 12:55 | disposition home or self-care (01) ==
LOC: SC 12:54
PROVIDERS: ATTEND Nurse Practitioner Family
DX: G47.33 Obstructive sleep apnea (adult) (pediatric) (principal); E66.3 Overweight; Z68.27 Body mass index [BMI] 27.0-27.9, adult
CPT/HCPCS: 99213; G0463; 99212

== ENCOUNTER 2022-05-29 08:00 | Outpatient (CLI) | payer MEDICARE, BC ==
--- NOTE | 2022-05-29 20:18 | XRAY Report ---
PROCEDURE: Hip w/Pelvis 2-3V RT INDICATIONS: RIGHT HIP PAIN TECHNIQUE: AP pelvis with lateral view(s) of the right hip(s). COMPARISON: None. FINDINGS: Bones: No fractures or dislocations. Pelvic ring appears intact. No suspicious bony lesions. Mode rate bilateral hip joint space narrowing Soft tissues: The visualized bowel gas pattern is normal. No suspicious soft tissue calcifications. IMPRESSION: Moderate bilateral hip joint space narrowing without marginal osteophyte Reviewed by: Julián Berumen MD on 05/29/2022 7:17 PM [facility] Approved by: Julián Berumen MD on 05/29/2022 7:17 PM [facility] Station ID: [id number]
== END 2022-05-29 23:59 | disposition home or self-care (01) ==
LOC: DI.S 08:00
PROVIDERS: ATTEND Internal Medicine
DX: M16.11 Unilateral primary osteoarthritis, right hip (principal)

== ENCOUNTER 2022-08-01 11:42 | Outpatient (CLI) | payer MEDICARE, BC | END 2022-08-01 11:43 | disposition home or self-care (01) | LOC: LAB.S 11:42 | PROVIDERS: ATTEND Nurse Practitioner Family | DX: Z85.46 Personal history of malignant neoplasm of prostate (principal) | CPT/HCPCS: 36415; 84153 ==

== ENCOUNTER 2023-01-17 11:58 | Outpatient (CLI) | payer MEDICARE, BC | END 2023-01-17 11:59 | disposition home or self-care (01) | LOC: LAB.S 11:58 | PROVIDERS: ATTEND Nurse Practitioner Family | DX: C61 Malignant neoplasm of prostate (principal) | CPT/HCPCS: 36415; 84153 ==

== ENCOUNTER 2023-02-21 09:59 | Outpatient (CLI) | payer MEDICARE, BC ==
[2023-02-21 15:33] LABS: BASOPHILS % (AUTO) 0.4 %; EOSINOPHILS # (AUTO) 0.2 10^3/uL (0.0-0.7); EOSINOPHILS % (AUTO) 4.5 %; HCT - HEMATOCRIT 40.5 % (42.0-52.0); HGB - HEMOGLOBIN 13.1 g/dL (14.0-18.0); LYMPHOCYTES # (AUTO) 1.4 10^3/uL (1.5-3.5); LYMPHOCYTES % (AUTO) 28.5 %; MEAN CORPUSCULAR HEMOGLOBIN 31.5 pg (27.0-31.0); MEAN CORPUSCULAR HGB CONC 32.3 g/dL (32.0-36.0); MEAN CORPUSCULAR VOLUME 97.4 fL (80.0-94.0); MEAN PLATELET VOLUME 10.2 fL (7.4-11.4); MONOCYTES # (AUTO) 0.4 10^3/uL (0.0-1.0); MONOCYTES % (AUTO) 8.5 %; NEUTROPHILS # (AUTO) 2.9 10^3/uL (1.5-6.6); NEUTROPHILS % (AUTO) 57.9 %; PLT - PLATELET COUNT 245 10^3/uL (130-450); RED BLOOD COUNT 4.16 10^6/uL (4.70-6.10); WHITE BLOOD COUNT 4.9 x10^3/uL (4.8-10.8)
[2023-02-21 16:04] LABS: ALBUMIN 4.2 g/dL (3.2-5.5); ALBUMIN/GLOBULIN RATIO 1.8 (1.0-2.2); ALKALINE PHOSPHATASE 64 IU/L (42-121); ALT ALANINE AMINOTRANSFERASE 17 IU/L (10-60); AST ASPARTATE AMINOTRANSFERASE 16 IU/L (10-42); BILIRUBIN,TOTAL 0.4 mg/dL (0.2-1.0); BUN - BLOOD UREA NITROGEN 18 mg/dL (6-20); CALCIUM 9.6 mg/dL (8.5-10.3); CARBON DIOXIDE - CO2 28 mmol/L (21-32); CHLORIDE 105 mmol/L (101-111); CHOL/HDL RATIO 3.9 (<5.0); CHOLESTEROL 181 mg/dL; GFR - MDRD 74 (>89); GLUCOSE 94 mg/dL (74-104); HDL CHOLESTEROL 47 mg/dL; LDL CHOLESTEROL,CALCULATED 89 mg/dL; LDL/HDL RATIO 1.9 (<3.6); POTASSIUM 4.3 mmol/L (3.5-4.5); SODIUM 139 mmol/L (135-145); TOTAL PROTEIN 6.6 g/dL (6.4-8.9); TRIGLYCERIDES 225 mg/dL (48-352); VLDL CHOLESTEROL 45 mg/dL
== END 2023-02-21 10:00 | disposition home or self-care (01) ==
LOC: LAB.S 09:59
PROVIDERS: ATTEND Registered Nurse
DX: E78.5 Hyperlipidemia, unspecified (principal); Z79.899 Other long term (current) drug therapy
CPT/HCPCS: 36415; 80053; 80061; 83721; 85025

== ENCOUNTER 2023-04-17 11:04 | Outpatient (CLI) | payer MEDICARE, BC ==
--- NOTE | 2023-04-17 11:49 | Sleep Patient Instructions ---
Sleep Center Visit Summary - Patient Visit Information Reason for Visit: Annual Visit - Patient Instructions Additional Instructions: You will continue with CPAP therapy with pressure set at 8.5-10 cmH2O. A supply prescription will be updated with your DME. We encourage you to continue to try to lose weight. Please follow up with the sleep care office in 1 year. - Clinic Information Contact: [facility] [address] [place] [address] [email or web address] T: [phone]
--- NOTE | 2023-04-17 11:53 | SLEEP CARE CONSULTATION ---
Information from patient questionnaire entered by Teresa Rodriguez. I have reviewed and concur with the information entered by Teresa Rodriguez. This document represents the service I personally performed and the decisions made by me, Luann Sweet ARNP. History of Present Illness Service Date and Time: 04/17/2023 1104 Previous diagnosis: Severe, Obstructive Sleep Apnea-Hypopnea Syndrome AHI: 35.4 (in 2013) Reason for follow up: annual (LAST SEEN 03/2022) Equipment type: CPAP (Dreamstation 2, s/u103/26/2019) Equipment obtained from: [employer] (getting supplies as needed) Mask style: Nasal Mask brand: Respironics (Dreamwear, medium cushion and frame) Backup mask available: Yes (old mask) Last cushion change: Friday Prior sleep studies: Yes Year and Where: 2013 - [facility] HPI additional information: MIGUEL ARMSTRONG was diagnosed to have severe, AHI 35.4, obstructive sleep apnea- hypopnea syndrome and returned today for CPAP therapy annual follow-up. Sleep Study - Results Prior sleep studies: Yes Year and Where: 2013 - [facility] CPAP Compliance Data - Data Reviewed with Patient Average duration of nightly device use: 9 HRS 4 MINS 49 SECS Compliance rate %: 100 (04/13/22-04/12/23; 365/365 days used) Current pressure setting (cmH2O): 8.5-10 Average residual AHI: 1.2 Central apnea: 0.2 Obstructive apnea: 0.6 Hypopnea: 0.4 Average large leak: 1 secs Subjective Patient concerns: reports: other (venting out of mouth). denies: aerophagia, mask discomfort, air blowing in eyes, mask leak noise, condensation in mask/hose, nasal congestion, dry mouth, nose, throat, epistaxis Observed to snore while using device: No Current pressure setting perceived as: comfortable On therapy, patient: reports: sleeping better, awakening more refreshed, being more awake and alert during the day, more rested overall. denies: drowsiness while driving Initial [place] Sleepiness Scale score: 0 (in 2017) Current [place] Sleepiness Scale score: 0 Allergies and Home Medications Known drug allergies: Yes (lisinopril (cough)) Drug allergies reviewed: Yes Home medication list reviewed: Yes (no changes) Review of Systems Review of systems same as previous: Yes (no changes) Physical Exam Vital signs obtained and entered by: MAURO CHRISTOPHER Blood Pressure: 138/76 Cuff size: regular (left arm) Heart Rate: 59 O2 Saturation: 98 Height: 5 ft 6 in Weight: 173 lb Weight change since last visit: 1 lb loss Body Mass Index: 27.9 BMI Classification: Overweight Impression and Plan 1. Obstructive Sleep Apnea-Hypopnea Syndrome, severe, with good treatment compliance and good apnea control. On CPAP therapy, the patient has better sleep quality and is more rested overall. Patient has significant improvement of their sleep apnea and is satisfied with current CPAP therapy. Patient did have a problem with oral venting for a while but since he has been using a Shruthi pot right before bed he has been able to keep his lips together. He has tried a chinstrap and snoring strips to keep his lips together with minimal improvement of oral venting. Patient denies problems with oral dryness, nasal congestion, epistaxis, skin irritation or aerophagia. Patient's apnea severity and rationale for treatment to reduce apnea, improve sleep quality and reduce cardiovascular and cerebrovascular events was reviewed. I also reviewed the benefit of consistent device use of CPAP for hypertension. 2. Overweight, unspecified. Currently patients BMI is 27.9. Obesity increases the risk of apnea, CPAP pressure requirements and overall health risks especially cardiovascular and diabetes. Thus patient is advised to lose weight. * Continue auto CPAP pressure at 8.5-10 cmH2O * Update supply prescription * Notify me if snoring with mask or feeling that the pressure is too much or too little * Attempt to lose weight * Call this office if any problems using CPAP * Return for follow up in 12 months, or sooner if concerns arise Counseling Topics: Weight loss health impact Prescriptions: Device supplies Follow up with Sleep Care in: 1 year Visit Type: In Office Time Spent with Patient (minutes): 21 Provider Statement: I spent 100% of the Face to Face Visit with the patient with greater than 50% spent counseling the patient and coordination of care.
[2023-04-17 11:54] VITALS: BP 138/76; O2SAT 98
== END 2023-04-17 11:05 | disposition home or self-care (01) ==
LOC: SC 11:04
PROVIDERS: ATTEND Nurse Practitioner Family
DX: G47.33 Obstructive sleep apnea (adult) (pediatric) (principal); E66.3 Overweight; Z68.27 Body mass index [BMI] 27.0-27.9, adult
CPT/HCPCS: 99213; G0463; 99212

== ENCOUNTER 2023-07-22 14:01 | Outpatient (CLI) | payer MEDICARE, BC ==
[2023-07-22 20:01] LABS: BASOPHILS % (AUTO) 0.6 %; EOSINOPHILS # (AUTO) 0.2 10^3/uL (0.0-0.7); EOSINOPHILS % (AUTO) 3.2 %; HGB - HEMOGLOBIN 13.7 g/dL (14.0-18.0); LYMPHOCYTES # (AUTO) 1.7 10^3/uL (1.5-3.5); LYMPHOCYTES % (AUTO) 32.5 %; MEAN CORPUSCULAR HEMOGLOBIN 32.1 pg (27.0-31.0); MEAN CORPUSCULAR HGB CONC 32.6 g/dL (32.0-36.0); MEAN CORPUSCULAR VOLUME 98.4 fL (80.0-94.0); MEAN PLATELET VOLUME 12.2 fL (7.4-11.4); MONOCYTES # (AUTO) 0.4 10^3/uL (0.0-1.0); MONOCYTES % (AUTO) 7.5 %; RED BLOOD COUNT 4.27 10^6/uL (4.70-6.10); WHITE BLOOD COUNT 5.4 x10^3/uL (4.8-10.8)
[2023-07-22 20:17] LABS: SLIDE REVIEW? Indicated
[2023-07-22 20:24] LABS: ALBUMIN 4.2 g/dL (3.2-5.5); ALBUMIN/GLOBULIN RATIO 1.4 (1.0-2.2); BILIRUBIN,TOTAL 0.4 mg/dL (0.2-1.0); CALCIUM 9.5 mg/dL (8.5-10.3); CREATININE 1.1 mg/dL (0.6-1.3); POTASSIUM 4.3 mmol/L (3.5-4.5); TOTAL PROTEIN 7.1 g/dL (6.4-8.9)
[2023-07-22 20:25] LABS: THYROID STIMULATING HORMONE 2.04 uIU/mL (0.34-5.60)
[2023-07-22 21:01] LABS: PLATELET ESTIMATE, MANUAL DECREASED (<130,000) (NORMAL)
== END 2023-07-22 14:02 | disposition home or self-care (01) ==
LOC: LAB.S 14:01
PROVIDERS: ATTEND Physician Assistant Medical
DX: I10 Essential (primary) hypertension (principal); R00.2 Palpitations; R06.02 Shortness of breath; Z85.46 Personal history of malignant neoplasm of prostate
CPT/HCPCS: 36415; 80053; 84153; 84443; 85025

== ENCOUNTER 2023-08-06 09:46 | Outpatient (CLI) | payer MEDICARE, BC ==
[2023-08-06 09:56] LABS: BASOPHILS % (AUTO) 0.5 %; EOSINOPHILS # (AUTO) 0.2 10^3/uL (0.0-0.7); EOSINOPHILS % (AUTO) 5.5 %; HCT - HEMATOCRIT 40.9 % (42.0-52.0); HGB - HEMOGLOBIN 13.6 g/dL (14.0-18.0); LYMPHOCYTES # (AUTO) 1.5 10^3/uL (1.5-3.5); LYMPHOCYTES % (AUTO) 36.9 %; MEAN CORPUSCULAR HEMOGLOBIN 31.6 pg (27.0-31.0); MEAN CORPUSCULAR HGB CONC 33.3 g/dL (32.0-36.0); MEAN CORPUSCULAR VOLUME 95.1 fL (80.0-94.0); MEAN PLATELET VOLUME 9.4 fL (7.4-11.4); MONOCYTES # (AUTO) 0.4 10^3/uL (0.0-1.0); MONOCYTES % (AUTO) 8.7 %; NEUTROPHILS % (AUTO) 48.4 %; PLT - PLATELET COUNT 209 10^3/uL (130-450); RED CELL DISTRIBUTION WIDTH 12.7 % (12.0-15.0); WHITE BLOOD COUNT 4.2 x10^3/uL (4.8-10.8)
== END 2023-08-06 09:47 | disposition home or self-care (01) ==
LOC: LAB 09:46
PROVIDERS: ATTEND Physician Assistant Medical
DX: R06.09 Other forms of dyspnea (principal); R06.02 Shortness of breath; R79.89 Other specified abnormal findings of blood chemistry
CPT/HCPCS: 36415; 85025